=== PATIENT | female | born 1955 | race Caucasian/White ===

== ENCOUNTER 2022-06-05 11:03 | Inpatient (IN) | payer OTHER ==
[2022-06-05 14:27] LABS: BASO % 0.6 % (0-2.0); EOS % 1.7 % (0-4.5); HEMOGLOBIN 14.1 GM/dL (10.7-15.3); LYMPH % 25.4 % (8-40); MCH 30.9 pg (25.7-33.7); MCHC 34.4 g/dl (32.0-36.0); MEAN CELL VOLUME 89.9 fl (80-96); MEAN PLT VOLUME 7.2 fl (7.5-11.1); MONO % 7.9 % (3.8-10.2); NEUT % 64.4 % (42.8-82.8); PLATELET COUNT 347 10^3/uL (134-434); RBC 4.56 M/mm3 (3.60-5.2); RDW 13.5 % (11.6-15.6); WHITE BLOOD COUNT 5.9 K/mm3 (4.0-10.0)
[2022-06-05 14:28] LABS: URINE APPEARANCE CLEAR; URINE BILIRUBIN NEGATIVE (NEGATIVE); URINE COLOR YELLOW; URINE GLUCOSE (UA) NEGATIVE (NEGATIVE); URINE KETONE NEGATIVE (NEGATIVE); URINE LEUK ESTERASE NEGATIVE (NEGATIVE); URINE NITRITE NEGATIVE (NEGATIVE); URINE PROTEIN NEGATIVE (NEGATIVE); URINE UROBILINOGEN 0.2 mg/dL (0.2-1.0)
[2022-06-05 14:44] LABS: CHLORIDE 106 mmol/L (98-107); SODIUM 141 mmol/L (136-145)
[2022-06-05 14:49] LABS: ALBUMIN 4.5 g/dl (3.4-5.0); ANION GAP 6 MMOL/L (8-16); BLOOD UREA NITROGEN 17.4 mg/dL (7-18); CALCIUM 9.5 mg/dL (8.5-10.1); CO2 30 mmol/L (21-32); GLUCOSE,RANDOM 91 mg/dL (74-106)
[2022-06-05 14:52] LABS: CREATININE 0.7 mg/dL (0.55-1.3); SGOT/AST 19 U/L (15-37); SGPT/ALT 29 U/L (13-61)
[2022-06-05 14:53] LABS: BILIRUBIN,TOTAL 0.5 mg/dL (0.2-1)
[2022-06-05 14:54] LABS: TOT PROT 8.2 g/dl (6.4-8.2)
[2022-06-05 14:56] LABS: ALK PHOS 113 U/L (45-117)
[2022-06-05] MEDS ORDERED: HALOPERIDOL LACTATE 5 MG/ML IM ONE (15:30)
[2022-06-05] MEDS ORDERED: HALOPERIDOL LACTATE 5 MG/ML ONE (16:09)
[2022-06-05] MEDS ORDERED: LORazepam 2 MG/ML SDV VIAL IM ONE (16:15)
[2022-06-05] MEDS ORDERED: HALOPERIDOL LACTATE 5 MG/ML IM PRN (18:14)
[2022-06-05] MEDS ORDERED: MIRTAZAPINE 30 MG TABLET PO SCH (22:00)
[2022-06-05] MEDS ORDERED: MIRTAZAPINE 15 MG TABLET (FP) ONE (23:02)
[2022-06-06] MEDS ORDERED: DEXTROSE 50%-WATER - 25 GM/50 ML VIAL IVPUSH PRN (00:46)
[2022-06-06] MEDS ORDERED: ACETAMINOPHEN 1000 MG/100 ML BAG IVPB PRN ×2 (00:46→14:35)
[2022-06-06 00:53] LABS: CALCIUM 9.1 mg/dL (8.5-10.1)
[2022-06-06 00:54] LABS: ALBUMIN 3.7 g/dl (3.4-5.0); BLOOD UREA NITROGEN 17.7 mg/dL (7-18)
[2022-06-06 00:57] LABS: CREATININE 0.6 mg/dL (0.55-1.3)
[2022-06-06 00:59] LABS: BILIRUBIN,TOTAL 0.2 mg/dL (0.2-1); TOT PROT 6.9 g/dl (6.4-8.2)
[2022-06-06] MEDS ORDERED: SODIUM CHLORIDE 1,000 ML IV SCH ×3 (01:00→20:00)
[2022-06-06 07:35] LABS: HEMATOCRIT 35.4 % (32.4-45.2); HEMOGLOBIN 12.4 GM/dL (10.7-15.3); MCH 31.5 pg (25.7-33.7); MCHC 35.1 g/dl (32.0-36.0); MEAN CELL VOLUME 89.8 fl (80-96); MEAN PLT VOLUME 7.4 fl (7.5-11.1); PLATELET COUNT 303 10^3/uL (134-434); RBC 3.95 M/mm3 (3.60-5.2); RDW 13.6 % (11.6-15.6); WHITE BLOOD COUNT 5.2 K/mm3 (4.0-10.0)
[2022-06-06 07:47] LABS: INR 1.01 (0.83-1.09); PROTHROMBIN TIME (PATIENT) 11.6 SEC (9.7-13.0)
[2022-06-06 07:49] LABS: ACTIVATED PTT 31.7 SECONDS (25.2-36.5)
[2022-06-06 08:31] LABS: MAGNESIUM 2.4 mg/dL (1.8-2.4)
[2022-06-06 08:34] LABS: PHOSPHOROUS 4.4 mg/dL (2.5-4.9)
[2022-06-06] MEDS ORDERED: MUPIROCIN 2% TOPICAL OINTMENT FOR DECOLONIZATION NS SCH ×2 (10:00→22:00)
[2022-06-06] MEDS ORDERED: ENOXAPARIN NA (PORCINE) 40 MG/0.4 ML DISP.SYRIN SQ SCH (10:00)
[2022-06-06] MEDS ORDERED: amLODIPine BESYLATE 10 MG TABLET (FP) PO SCH (10:00)
[2022-06-06] MEDS ORDERED: hydrOXYzine PAMOATE 25 MG CAPSULE (FP) PO PRN (14:14)
[2022-06-06 16:41] LABS: METHADONE, UR NEGATIVE (NEGATIVE); PHENCYCLIDINE,URINE NEGATIVE (NEGATIVE); URINE BARBITURATES NEGATIVE (NEGATIVE)
[2022-06-06 16:43] LABS: OPIATES, URI NEGATIVE (NEGATIVE)
[2022-06-06 16:46] LABS: COCAINE, UR NEGATIVE (NEGATIVE)
[2022-06-06 16:59] LABS: URINE AMPHETAMINES NEGATIVE (NEGATIVE); URINE BENZODIAZEPINES NEGATIVE (NEGATIVE)
[2022-06-06] MEDS ORDERED: MIRTAZAPINE 15 MG TABLET (FP) ONE (21:12)
[2022-06-06] MEDS: MIRTAZAPINE 30 MG TABLET PO SCH (21:20)
[2022-06-06] MEDS ORDERED: CHLORHEXIDINE GLUCONATE 4% CLEANSER FOR DECOLONIZATION TP SCH ×2 (22:00)
[2022-06-07] MEDS ORDERED: hydrOXYzine PAMOATE 25 MG CAPSULE (FP) PO PRN (08:58)
[2022-06-07] MEDS: amLODIPine BESYLATE 10 MG TABLET (FP) PO SCH (09:41)
[2022-06-07] MEDS: ARIPiprazole 5 MG TABLET PO SCH (13:21)
[2022-06-07] MEDS ORDERED: MIRTAZAPINE 15 MG TABLET (FP) ONE (21:23)
[2022-06-07] MEDS: MIRTAZAPINE 30 MG TABLET PO SCH (21:33)
[2022-06-08] MEDS: ARIPiprazole 5 MG TABLET PO SCH (09:06)
[2022-06-08] MEDS: amLODIPine BESYLATE 10 MG TABLET (FP) PO SCH (09:06)
[2022-06-08 09:52] VITALS: BMI 24.8
[2022-06-08] MEDS ORDERED: MIRTAZAPINE 15 MG TABLET (FP) ONE (20:35)
[2022-06-08] MEDS: MIRTAZAPINE 30 MG TABLET PO SCH (21:28)
[2022-06-09] MEDS: amLODIPine BESYLATE 10 MG TABLET (FP) PO SCH (09:41)
[2022-06-09] MEDS: ARIPiprazole 5 MG TABLET PO SCH (09:41)
[2022-06-09 12:29] LABS: BLOOD UREA NITROGEN 15.6 mg/dL (7-18); CALCIUM 9.4 mg/dL (8.5-10.1)
[2022-06-09 12:33] LABS: CREATININE 0.7 mg/dL (0.55-1.3)
[2022-06-09] MEDS ORDERED: MIRTAZAPINE 15 MG TABLET (FP) ONE (21:09)
[2022-06-09] MEDS: MIRTAZAPINE 30 MG TABLET PO SCH (21:15)
[2022-06-10] MEDS: ARIPiprazole 5 MG TABLET PO SCH (09:28)
[2022-06-10] MEDS: amLODIPine BESYLATE 10 MG TABLET (FP) PO SCH (09:28)
[2022-06-10] MEDS ORDERED: MIRTAZAPINE 15 MG TABLET (FP) ONE (20:54)
[2022-06-10] MEDS: MIRTAZAPINE 30 MG TABLET PO SCH (21:04)
[2022-06-11] MEDS: ARIPiprazole 5 MG TABLET PO SCH (10:35)
[2022-06-11] MEDS: amLODIPine BESYLATE 10 MG TABLET (FP) PO SCH (10:35)
[2022-06-11] MEDS ORDERED: MIRTAZAPINE 15 MG TABLET (FP) ONE (20:43)
[2022-06-11] MEDS: MIRTAZAPINE 30 MG TABLET PO SCH (21:19)
[2022-06-12] MEDS: amLODIPine BESYLATE 10 MG TABLET (FP) PO SCH (09:49)
[2022-06-12] MEDS: ARIPiprazole 5 MG TABLET PO SCH (09:49)
[2022-06-12 14:41] VITALS: TEMP 97.6
[2022-06-12 14:47] VITALS: BP 153/77; PULSE 87
== END 2022-06-12 15:05 | disposition home or self-care (01) | DRG 66 ==
LOC: JER 11:03 → JERBED 16:21 → JICU 06-06 04:16 → J4S 06-06 11:46
PROVIDERS: ADMIT Internal Medicine; ATTEND Internal Medicine
DX: I61.9 Nontraumatic intracerebral hemorrhage, unspecified (principal); F22 Delusional disorders; Z59.00 Homelessness unspecified; F32.A Depression, unspecified; F41.8 Other specified anxiety disorders; F39 Unspecified mood [affective] disorder; I10 Essential (primary) hypertension; F29 Unspecified psychosis not due to a substance or known physiological condition; R51.9 Headache, unspecified; F03.90 Unspecified dementia, unspecified severity, without behavioral disturbance, psychotic disturbance, mood disturbance, and anxiety; M62.81 Muscle weakness (generalized)
CPT/HCPCS: 36415; 70450-TC; 70544-TC; 70551-TC; 71045-TC-FY; 80048; 80053; 80307; 81003; 82607; 82962; 83036; 83735; 84100; 84439; 84443; 84484; 85025; 85027; 85610; 85730; 86780; 87086; 93005; 93010; 97116-GP; 97161-GP; 99285-25; C9803-CS; U0003; U0005